=== PATIENT | female | born 1950 | race Two or more races ===

== ENCOUNTER 2018-04-07 07:05 | Outpatient (CLI) | payer OTHER ==
[~2018-04-07 07:05] MED LIST: AMOXICILLIN500 M1; BIAXIN500 MG; CLARITIN10 MG; GLUCOPHAGE XR500 MG; GRALISE600 MG; HYZAAR 100/25 T1 TAB; METOPROLOL SUCC50 MG; PRILOSEC20 MG
== END 2018-04-07 07:13 | disposition home or self-care (01) ==
LOC: NUCLEAR 07:05
DX: R06.09 Other forms of dyspnea (principal); I25.10 Atherosclerotic heart disease of native coronary artery without angina pectoris; I11.9 Hypertensive heart disease without heart failure
CPT/HCPCS: 78452; 93017; A9500; J0153

== ENCOUNTER 2021-01-24 08:55 | Outpatient (CLI) | payer OTHER | END 2021-01-24 08:56 | disposition home or self-care (01) | LOC: LAB 08:55 | PROVIDERS: ATTEND Internal Medicine Hematology & Oncology | DX: D50.8 Other iron deficiency anemias (principal); R79.89 Other specified abnormal findings of blood chemistry; I10 Essential (primary) hypertension; R74.02 Elevation of levels of lactic acid dehydrogenase [LDH]; K76.89 Other specified diseases of liver; D51.1 Vitamin B12 deficiency anemia due to selective vitamin B12 malabsorption with proteinuria; D51.0 Vitamin B12 deficiency anemia due to intrinsic factor deficiency; D63.1 Anemia in chronic kidney disease; E03.8 Other specified hypothyroidism; E06.3 Autoimmune thyroiditis; R97.0 Elevated carcinoembryonic antigen [CEA]; R97.8 Other abnormal tumor markers; D55.0 Anemia due to glucose-6-phosphate dehydrogenase [G6PD] deficiency; R59.1 Generalized enlarged lymph nodes; E11.9 Type 2 diabetes mellitus without complications ==

== ENCOUNTER 2021-12-03 09:46 | Outpatient (CLI) | payer OTHER | END 2021-12-03 09:51 | disposition home or self-care (01) | LOC: LAB 09:46 | PROVIDERS: ATTEND Internal Medicine Hematology & Oncology | DX: D50.8 Other iron deficiency anemias (principal); R79.9 Abnormal finding of blood chemistry, unspecified; I10 Essential (primary) hypertension; R74.02 Elevation of levels of lactic acid dehydrogenase [LDH]; K76.89 Other specified diseases of liver; D51.8 Other vitamin B12 deficiency anemias; E55.9 Vitamin D deficiency, unspecified; E03.8 Other specified hypothyroidism; R97.0 Elevated carcinoembryonic antigen [CEA]; R97.8 Other abnormal tumor markers; D51.0 Vitamin B12 deficiency anemia due to intrinsic factor deficiency; E06.3 Autoimmune thyroiditis; R59.1 Generalized enlarged lymph nodes; E78.2 Mixed hyperlipidemia; E11.9 Type 2 diabetes mellitus without complications ==

== ENCOUNTER 2022-11-30 08:50 | Outpatient (CLI) | payer OTHER | END 2022-11-30 08:54 | disposition home or self-care (01) | LOC: LAB 08:50 | PROVIDERS: ATTEND Internal Medicine Hematology & Oncology | DX: D50.8 Other iron deficiency anemias (principal); R79.9 Abnormal finding of blood chemistry, unspecified; I10 Essential (primary) hypertension; R74.02 Elevation of levels of lactic acid dehydrogenase [LDH]; K76.89 Other specified diseases of liver; D51.8 Other vitamin B12 deficiency anemias; E55.9 Vitamin D deficiency, unspecified; D51.0 Vitamin B12 deficiency anemia due to intrinsic factor deficiency; D51.1 Vitamin B12 deficiency anemia due to selective vitamin B12 malabsorption with proteinuria; E06.3 Autoimmune thyroiditis; R59.1 Generalized enlarged lymph nodes; E78.2 Mixed hyperlipidemia; E11.9 Type 2 diabetes mellitus without complications ==

== ENCOUNTER → 2023-06-03 10:05 | Outpatient (CLI) | payer OTHER ==
[2023-06-03 11:12] LABS: HEMATOCRIT 36.3 % (36.0-45.00); HEMOGLOBIN 11.7 g/dL (12.0-15.00); MEAN CELL VOLUME 89.3 fL (80.00-100.00); MEAN CORPUSCULAR HEMOGLOBIN 28.7 pg (27.00-32.0); MEAN CORPUSCULAR HGB CONC 32.1 g/dl (32.0-36.0); PLATELET COUNT 281 K/uL (150-450); RED BLOOD COUNT 4.06 M/uL (4.00-6.00); RED CELL DISTRIBUTION WIDTH 19.8 % (11.5-14.5)
[2023-06-03 12:02] LABS: VITAMIN D3 25 HYDROXY 43.02 ng/ml (30-120)
[2023-06-03 12:03] LABS: ALBUMIN 3.6 gm/dL (3.4-5.0); BILIRUBIN TOTAL 0.33 mg/dL (0.3-1.2); CALCIUM 9.5 mg/dL (8.5-10.1); CREATININE SERUM 0.64 mg/dL (0.55-1.02); GFR 90.96; GLOBULINA 3.4 G/DL (2.4-3.5); POTASSIUM 3.51 mEq/L (3.5-5.1)
[2023-06-03 12:10] LABS: % SATURACION 11.7 % (15-50); FERRITIN 14.7 NG/ML (8-252)
[2023-06-03 12:19] LABS: MANUAL PLATELET COUNT 328; PLATELET ESTIMATE NORMAL (NORMAL)
== END | disposition home or self-care (01) ==
LOC: LAB 10:05
PROVIDERS: ATTEND Internal Medicine Hematology & Oncology
DX: D50.8 Other iron deficiency anemias (principal); R79.9 Abnormal finding of blood chemistry, unspecified; I10 Essential (primary) hypertension; R74.02 Elevation of levels of lactic acid dehydrogenase [LDH]; K76.89 Other specified diseases of liver; E55.9 Vitamin D deficiency, unspecified; C50.919 Malignant neoplasm of unspecified site of unspecified female breast; R97.8 Other abnormal tumor markers; C25.9 Malignant neoplasm of pancreas, unspecified; C56.9 Malignant neoplasm of unspecified ovary; R97.1 Elevated cancer antigen 125 [CA 125]; D51.0 Vitamin B12 deficiency anemia due to intrinsic factor deficiency; D51.1 Vitamin B12 deficiency anemia due to selective vitamin B12 malabsorption with proteinuria; E06.3 Autoimmune thyroiditis; R59.1 Generalized enlarged lymph nodes; E78.2 Mixed hyperlipidemia; E11.9 Type 2 diabetes mellitus without complications

== ENCOUNTER 2024-04-26 08:57 | Emergency (ER) | payer OTHER ==
[~2024-04-26] VITALS: Ht 157.5 cm; Wt 83.9 kg
[2024-04-26] MEDS ORDERED: PEPCID AC20 MG PO (09:12)
[2024-04-26] MEDS ORDERED: PREVACID30 MG PO (09:12)
[2024-04-26] MEDS ORDERED: METFORMIN HCL1000 MG (09:13)
[2024-04-26] MEDS ORDERED: SULFASALAZINE500 M1 PO (09:13)
[2024-04-26] MEDS ORDERED: JARDIANCE25 MG PO (09:13)
[2024-04-26] MEDS ORDERED: CRESTOR40 MG PO (09:14)
[2024-04-26] MEDS ORDERED: GRALISE600 MG PO (09:14)
[2024-04-26] MEDS ORDERED: FLUCONAZOLE150 MG PO (09:15)
[2024-04-26] MEDS ORDERED: MERIBIN5 MG PO (09:15)
[2024-04-26] MEDS ORDERED: PREDNISONE50 M1 PO (09:16)
[2024-04-26 09:17] VITALS: O2SAT 96
[2024-04-26] MEDS ORDERED: cloNIDine HCL 0.2 MG TABLET PO STA (09:56)
[2024-04-26 10:22] LABS: URINE BILIRRUBIN Negative (NEGATIVE); URINE BLOOD Negative; URINE COLOR Yellow; URINE KETONE Negative (NEGATIVE); URINE LEUKOCYTE Trace; URINE NITRATE Negative; URINE PROTEIN Negative (NEGATIVE); URINE UROBILINOGEN 0.2 E.U./dl
[2024-04-26 10:24] LABS: URINE BACTERIA 46.5 uL (0.0-1933); URINE EPITHELIAL CELLS 11.7 uL (0.0-38.8); URINE RBC 2.7 uL (0.0-20.8)
[2024-04-26 10:35] LABS: HEMATOCRIT 38.2 % (36.0-45.00); HEMOGLOBIN 12.7 g/dL (12.0-15.00); MEAN CELL VOLUME 91.9 fL (80.00-100.00); MEAN CORPUSCULAR HEMOGLOBIN 30.5 pg (27.00-32.0); MEAN CORPUSCULAR HGB CONC 33.2 g/dl (32.0-36.0); PLATELET COUNT 327 K/uL (150-450); RED BLOOD COUNT 4.15 M/uL (4.00-6.00); RED CELL DISTRIBUTION WIDTH 17.3 % (11.5-14.5)
[2024-04-26 10:38] LABS: URINE APPEARANCE CLEAR; URINE GLUCOSE >=1000 MG/DL (NEGATIVE)
[2024-04-26 10:54] LABS: CALCIUM 10.2 mg/dL (8.5-10.1); CREATININE SERUM 0.82 mg/dL (0.55-1.02); GFR 68.15; POTASSIUM 4.02 mEq/L (3.5-5.1)
[2024-04-26 11:54] VITALS: BP 95/62
== END 2024-04-26 12:39 | disposition home or self-care (01) ==
LOC: ER 08:59
PROVIDERS: General Practice
DX: R51.9 Headache, unspecified (principal); R07.89 Other chest pain; E11.9 Type 2 diabetes mellitus without complications; Z79.84 Long term (current) use of oral hypoglycemic drugs; I10 Essential (primary) hypertension

== ENCOUNTER 2024-06-21 09:54 | Outpatient (CLI) | payer OTHER ==
[~2024-06-21 09:54] MED LIST changes: +CRESTOR40 MG PO; +FLUCONAZOLE150 MG PO; +GRALISE600 MG PO; +JARDIANCE25 MG PO; +MERIBIN5 MG PO; +METFORMIN HCL1000 MG; +PEPCID AC20 MG PO; +PREDNISONE50 M1 PO; +PREVACID30 MG PO; +SULFASALAZINE500 M1 PO
[2024-06-21 10:28] LABS: HEMOGLOBIN 12.7 g/dL (12.0-15.00); MEAN CELL VOLUME 91.2 fL (80.00-100.00); MEAN CORPUSCULAR HEMOGLOBIN 29.7 pg (27.00-32.0); MEAN CORPUSCULAR HGB CONC 32.6 g/dl (32.0-36.0); PLATELET COUNT 307 K/uL (150-450); RED BLOOD COUNT 4.28 M/uL (4.00-6.00); RED CELL DISTRIBUTION WIDTH 16.5 % (11.5-14.5)
[2024-06-21 11:29] LABS: % SATURACION 16.3 % (15-50); ALBUMIN 3.8 gm/dL (3.4-5.0); BILIRUBIN TOTAL 0.36 mg/dL (0.3-1.2); CALCIUM 9.4 mg/dL (8.5-10.1); CREATININE SERUM 0.83 mg/dL (0.55-1.02); FERRITIN 14.4 NG/ML (8-252); GFR 67.2; GLOBULINA 3.8 G/DL (2.4-3.5); POTASSIUM 4.08 mEq/L (3.5-5.1); TOTAL PROTEIN 7.6 gm/dL (6.4-8.2)
[2024-06-21 12:03] LABS: FOLIC ACID 12.07 ng/ml (4.78-20); VITAMIN D3 25 HYDROXY 47.96 ng/ml (30-120)
[2024-06-21 13:52] LABS: MANUAL PLATELET COUNT 394
[2024-06-21 13:56] LABS: PLATELET ESTIMATE NORMAL (NORMAL)
== END 2024-06-21 09:55 | disposition home or self-care (01) ==
LOC: LAB 09:54
PROVIDERS: ATTEND Internal Medicine Hematology & Oncology
DX: D51.0 Vitamin B12 deficiency anemia due to intrinsic factor deficiency (principal); D51.1 Vitamin B12 deficiency anemia due to selective vitamin B12 malabsorption with proteinuria; E06.3 Autoimmune thyroiditis; R59.1 Generalized enlarged lymph nodes; I10 Essential (primary) hypertension; E78.2 Mixed hyperlipidemia; E11.9 Type 2 diabetes mellitus without complications; D50.8 Other iron deficiency anemias; R79.9 Abnormal finding of blood chemistry, unspecified; R74.02 Elevation of levels of lactic acid dehydrogenase [LDH]; K76.89 Other specified diseases of liver; E55.9 Vitamin D deficiency, unspecified

== ENCOUNTER 2024-11-23 07:10 | Outpatient (CLI) | payer OTHER | END 2024-11-23 07:11 | disposition home or self-care (01) | LOC: NUCLEAR 07:10 | PROVIDERS: ATTEND Internal Medicine Rheumatology | DX: M05.69 Rheumatoid arthritis of multiple sites with involvement of other organs and systems (principal) | CPT/HCPCS: 78315; A9503 ==

== ENCOUNTER 2024-11-23 10:58 | Outpatient (CLI) | payer OTHER | END 2024-11-23 11:08 | disposition home or self-care (01) | LOC: MRI 10:58 | PROVIDERS: ATTEND Internal Medicine | DX: M25.561 Pain in right knee (principal) | CPT/HCPCS: 73721 ==

== ENCOUNTER 2024-11-27 10:53 | Outpatient (CLI) | payer OTHER | END 2024-11-27 10:54 | disposition home or self-care (01) | LOC: NUCLEAR 10:53 | PROVIDERS: ATTEND Internal Medicine | DX: I87.2 Venous insufficiency (chronic) (peripheral) (principal) ==

== ENCOUNTER → 2024-12-19 07:15 | Outpatient (CLI) | payer OTHER ==
[2024-12-19 08:07] LABS: BASO % 0.5 % (0.1-1.2); EOS # 0.16 (0.04-0.54); EOS % 1.8 % (0.7-7.0); HEMATOCRIT 38.5 % (34.1-44.9); HEMOGLOBIN 12.5 g/dL (11.2-15.7); LYMPH # 3.05 (1.18-3.74); LYMPH % 33.5 % (19.3-53.1); MEAN CORPUSCULAR HEMOGLOBIN 28.4 pg (25.6-32.2); MONO # 0.48 (0.24-0.82); MONO % 5.3 % (4.7-12.5); NEUT # 5.34 (1.56-6.13); NEUT % 58.6 % (34.0-71.1); PLATELET COUNT 300 K/uL (163-369); RED CELL DISTRIBUTION WIDTH 15.9 % (11.6-14.4)
[2024-12-19 09:15] LABS: ALBUMIN 3.7 gm/dL (3.4-5.0); ALKALINE PHOSPHATASE 88 U/L (50-136); ALT/SGPT 27 U/L (12-78); ANION GAP 8 (10.0-20.0); AST/SGOT 20 U/L (15-37); BILIRUBIN TOTAL 0.35 mg/dL (0.3-1.2); BLOOD UREA NITROGEN 15 mg/dL (7-18); BUN CREA RATIO 23 (7.0-25.0); CALCIUM 9.6 mg/dL (8.5-10.1); CARBON DIOXIDE 33 mEq/L (21-32); CHLORIDE 106 mmol/L (98-107); CHOL HDL RATIO 2.2 (0-5.0); CHOLESTEROL 92 mg/dL (0-200); CREATININE SERUM 0.64 mg/dL (0.55-1.02); GFR 90.71; GLOBULINA 3.7 G/DL (2.4-3.5); GLUCOSE FASTING 88 mg/dL (65-100); HDL 42 mg/dl (40-60); LDH 115 U/L (84-246); LDL 17 mg/dl (0-130); OSMOLALITY SERUM 285 MOSM/KG (275-295); POTASSIUM 3.99 mEq/L (3.5-5.1); SODIUM 143 mmol/L (136-145); T4 FREE 1.03 NG/ML (0.76-1.46); TOTAL PROTEIN 7.4 gm/dL (6.4-8.2); TRIGLYCERIDES 167 mg/dL (0-150); VLDL 33 (0-39)
[2024-12-19 11:26] LABS: FOLIC ACID 11.15 ng/ml (4.78-20); VITAMIN D3 25 HYDROXY 52.86 ng/ml (30-120)
[2024-12-19 19:21] LABS: TOTAL IRON BINDING CAPACITY 471 ug/dl (250-450)
[2024-12-20 06:48] LABS: PHENOBARBITAL < 2.1 ug/ml (15-40)
[2024-12-21 05:07] LABS: CA 15-3 20.1 U/mL (0.0-25.0)
[2024-12-21 07:10] LABS: TRANSFERIN 374 mg/dL (192-364)
== END | disposition home or self-care (01) ==
LOC: LAB 07:15
PROVIDERS: ATTEND Internal Medicine Hematology & Oncology
DX: G25.0 Essential tremor (principal)